=== PATIENT | male | born 1950 | race Caucasian/White ===

== ENCOUNTER 2022-09-13 11:35 | Inpatient (IN) | payer MEDICARE ==
[2022-09-13] MEDS ORDERED: Ondansetron PF 4 MG/2 ML Vial ONE (12:11)
[2022-09-13 12:12] LABS: #Basophils 0.1 10x3/uL (0.0-0.2); #Eosinphils 0.2 10x3/uL (0.0-0.5); #Neutrophils 7.5 10x3/uL (1.5-8.4); %Basophils 0.7 % (0.0-2.0); %Eosinophils 1.9 % (0.0-6.0); %Lymphocytes 18.8 % (18.0-47.0); %Neutrophils 69.1 % (40.0-75.0); Hematocrit 44.2 % (38.8-50.0); Hemoglobin 15.2 g/dL (13.5-17.5); Mean Corpuscular HGB CONC 34.4 g/dL (32.0-36.0); Mean Corpuscular Hemoglobin 32.5 pg (27.0-33.0); Mean Corpuscular Volume 94.4 fl (81.2-95.1); Mean Platelet Volume 9.9 fl (7.4-10.4); Platelet Count 204 10x3/uL (150-450); RBC Distribution Width 12.8 % (11.5-14.5); Red Blood Cell (RBC) Count 4.68 10x6/uL (4.32-5.72); White Blood Cell (WBC) Count 10.9 10x3/uL (3.5-10.5)
[2022-09-13 12:31] LABS: ALT (SGPT) 14 U/L (8-55); AST (SGOT) 8 U/L (5-34); Albumin 4.1 g/dL (3.4-4.8); Alkaline Phosphatase 77 U/L (40-110); Anion Gap 21 mmol/L (10-20); BUN (Urea Nitrogen) 58 mg/dL (8.4-25.7); Bilirubin, Total 0.4 mg/dL (0.2-1.2); CK (CPK) 78 U/L (30-200); Calc. Creatinine Clearance 0 mL/min (70-130); Calcium 8.8 mg/dL (7.8-10.44); Carbon Dioxide 14 mmol/L (23-31); Chloride 107 mmol/L (98-107); Estimated GFR 8; Globulin 3.4 g/dL (2.4-3.5); Glucose 120 mg/dL (80-115); Magnesium 2.5 mg/dL (1.6-2.6); Potassium 4.4 mmol/L (3.5-5.1); Protein, Total 7.5 g/dL (5.8-8.1); Sodium 138 mmol/L (136-145)
[2022-09-13 12:58] LABS: Phosphorus 6.3 mg/dL (2.3-4.7)
[2022-09-13] MEDS ORDERED: Sodium Bicarbonate 150 MEQ in Dextrose 5% in Water 1,000 ML IV SCH (13:30)
[2022-09-13] MEDS ORDERED: Ondansetron ODT 4 MG TAB PO PRN (13:59)
[2022-09-13] MEDS ORDERED: Ondansetron PF 4 MG/2 ML Vial IVP PRN (13:59)
[2022-09-13] MEDS ORDERED: Acetaminophen 325 MG TAB PO PRN (13:59)
[2022-09-13] MEDS ORDERED: Senokot S 8.6-50 MG TAB PO PRN (13:59)
[2022-09-13] MEDS ORDERED: Nitroglycerin 0.4 MG TAB (25 Tab Bottle) SL PRN (14:02)
[2022-09-13] MEDS ORDERED: Ipratropium/Albuterol 3 ML NEB NEB PRN (14:25)
[2022-09-13 16:04] LABS: Troponin I Less than 0.010 ng/mL (< 0.028)
[2022-09-13 18:13] LABS: Bilirubin Neg (Negative); Blood, Urine 150 (Negative); Clarity Clear (Clear); Glucose, Urine (Dipstick) Normal (Negative); Ketone, Urine Negative (Negative); Leukocyte Negative (Negative); Nitrite Negative (Negative); Protein, Urine (Dipstick) 30 mg/dl (Neg-Trace); Urobilinogen Normal mg/dL (Less than 2)
[2022-09-13 18:58] LABS: Bacteria/HPF 1+ HPF (None Seen); CAUTI Indications for Culture Acute Hematuria; Mucous/LPF 1+ LPF (<2+); Squamous Epithelial 0-3 HPF (0-3); WBC/HPF 0-3 HPF (0-3)
[2022-09-13 18:59] LABS: Urine Culture Reflex No No
[2022-09-13] MEDS: Sodium Bicarbonate 150 MEQ, Admixture Fee 1 EACH in Dextrose 5% in Water 1,000 ML IV SCH (21:00)
[2022-09-13] MEDS: Folic Acid 1 MG TAB PO SCH (21:00)
[2022-09-13] MEDS: Heparin 5,000 UNITS/ML VIAL SC SCH (21:00)
[2022-09-13] MEDS: Thiamine 100 MG TAB PO SCH (21:00)
[2022-09-13 21:15] VITALS: BMI 14.8
[2022-09-13] MEDS ORDERED: Thiamine HCl 200 MG/2 ML VIAL ONE (22:08)
[2022-09-13] MEDS ORDERED: Folic Acid 1 MG TAB ONE (22:08)
[2022-09-13] MEDS ORDERED: Heparin 5,000 UNITS/ML VIAL ONE (22:08)
[2022-09-13] MEDS ORDERED: Thiamine 100 MG TAB ONE (22:11)
[2022-09-14] MEDS ORDERED: Albumin 25% 100 ML ONE ×2 (01:31→08:24)
[2022-09-14] MEDS: Albumin 25% 25 GM/100 ML BOT IVPB SCH ×3 (01:40→08:20)
[2022-09-14 02:46] LABS: #Basophils 0.1 10x3/uL (0.0-0.2); #Eosinphils 0.2 10x3/uL (0.0-0.5); #Monocytes 0.6 10x3/uL (0.0-1.1); #Neutrophils 4.5 10x3/uL (1.5-8.4); %Basophils 0.8 % (0.0-2.0); %Lymphocytes 29.1 % (18.0-47.0); Hematocrit 33.3 % (38.8-50.0); Hemoglobin 11.5 g/dL (13.5-17.5); Mean Corpuscular HGB CONC 34.5 g/dL (32.0-36.0); Mean Corpuscular Hemoglobin 32.1 pg (27.0-33.0); Platelet Count 156 10x3/uL (150-450); RBC Distribution Width 12.7 % (11.5-14.5); Red Blood Cell (RBC) Count 3.58 10x6/uL (4.32-5.72); White Blood Cell (WBC) Count 7.4 10x3/uL (3.5-10.5)
[2022-09-14 03:48] LABS: Anion Gap 13 mmol/L (10-20); BUN (Urea Nitrogen) 47 mg/dL (8.4-25.7); Calc. Creatinine Clearance 14 mL/min (70-130); Calcium 7.3 mg/dL (7.8-10.44); Carbon Dioxide 25 mmol/L (23-31); Chloride 107 mmol/L (98-107); Estimated GFR 20; Glucose 79 mg/dL (80-115); Potassium 3.4 mmol/L (3.5-5.1); Sodium 142 mmol/L (136-145)
[2022-09-14] MEDS ORDERED: Lactated Ringer's 1,000 ML IV SCH (08:00)
[2022-09-14] MEDS ORDERED: Aspirin 81 mg Enteric Coated Tablet ONE (08:14)
[2022-09-14] MEDS ORDERED: Clopidogrel Bisulfate 75 MG TAB ONE (08:15)
[2022-09-14] MEDS ORDERED: Famotidine 20 MG TAB ONE (08:16)
[2022-09-14] MEDS ORDERED: Albumin 25% 25 GM/100 ML BOT IVPB SCH (08:30)
[2022-09-14] MEDS: Lactated Ringer's 1,000 ML IV SCH ×2 (08:30→17:57)
[2022-09-14] MEDS: Aspirin 81 mg Enteric Coated Tablet PO SCH (08:38)
[2022-09-14] MEDS: Famotidine 20 MG TAB PO SCH (08:39)
[2022-09-14] MEDS: Clopidogrel Bisulfate 75 MG TAB PO SCH (08:39)
[2022-09-14] MEDS ORDERED: Ondansetron PF 4 MG/2 ML Vial ONE (08:43)
[2022-09-14] MEDS ORDERED: GUAIFENESIN SF SOLN 200 MG/10 ML UDCUP PO PRN (09:37)
[2022-09-14] MEDS: Heparin 5,000 UNITS/ML VIAL SC SCH ×2 (11:45→22:02)
[2022-09-14] MEDS ORDERED: Heparin 5,000 UNITS/ML VIAL ONE (11:59)
[2022-09-14 17:13] LABS: Anion Gap 11 mmol/L (10-20); BUN (Urea Nitrogen) 32 mg/dL (8.4-25.7); Calc. Creatinine Clearance 23 mL/min (70-130); Calcium 7.3 mg/dL (7.8-10.44); Carbon Dioxide 28 mmol/L (23-31); Chloride 107 mmol/L (98-107); Estimated GFR 36; Glucose 96 mg/dL (80-115); Potassium 3.7 mmol/L (3.5-5.1); Sodium 142 mmol/L (136-145)
[2022-09-14] MEDS: Thiamine 100 MG TAB PO SCH (22:02)
[2022-09-14] MEDS: Folic Acid 1 MG TAB PO SCH (22:02)
[2022-09-15] MEDS ORDERED: Zolpidem Tartrate 5 MG TAB PO SCH (00:30)
[2022-09-15] MEDS: Sodium Bicarbonate 150 MEQ, Admixture Fee 1 EACH in Dextrose 5% in Water 1,000 ML IV SCH (01:18)
[2022-09-15 05:19] LABS: Anion Gap 12 mmol/L (10-20); BUN (Urea Nitrogen) 25 mg/dL (8.4-25.7); Calc. Creatinine Clearance 29 mL/min (70-130); Calcium 7.5 mg/dL (7.8-10.44); Carbon Dioxide 26 mmol/L (23-31); Chloride 109 mmol/L (98-107); Estimated GFR 49; Glucose 91 mg/dL (80-115); Sodium 143 mmol/L (136-145)
[2022-09-15] MEDS: Aspirin 81 mg Enteric Coated Tablet PO SCH (09:01)
[2022-09-15] MEDS: Famotidine 20 MG TAB PO SCH (09:01)
[2022-09-15] MEDS: Clopidogrel Bisulfate 75 MG TAB PO SCH (09:01)
[2022-09-15] MEDS: Heparin 5,000 UNITS/ML VIAL SC SCH (09:01)
[2022-09-15 12:27] VITALS: TEMP 97.8
[2022-09-15] MEDS: Lactated Ringer's 1,000 ML IV SCH (13:09)
[2022-09-15 13:20] VITALS: BP 115/64
== END 2022-09-15 12:45 | disposition home or self-care (01) | DRG 922 ==
LOC: CSHERS 11:35 → CSHERHOLD 14:03 → CSHTELE 09-14 14:30
PROVIDERS: ADMIT Internal Medicine; ATTEND Internal Medicine
DX: T67.3XXA Heat exhaustion, anhydrotic, initial encounter (principal); N17.0 Acute kidney failure with tubular necrosis; I42.9 Cardiomyopathy, unspecified; E87.20 Acidosis, unspecified; N18.9 Chronic kidney disease, unspecified; E86.0 Dehydration; I95.9 Hypotension, unspecified; I25.10 Atherosclerotic heart disease of native coronary artery without angina pectoris; I25.2 Old myocardial infarction; F17.210 Nicotine dependence, cigarettes, uncomplicated; E78.5 Hyperlipidemia, unspecified; I12.9 Hypertensive chronic kidney disease with stage 1 through stage 4 chronic kidney disease, or unspecified chronic kidney disease; E83.39 Other disorders of phosphorus metabolism; E87.6 Hypokalemia; Z79.82 Long term (current) use of aspirin; Z79.899 Other long term (current) drug therapy; Z95.810 Presence of automatic (implantable) cardiac defibrillator; Z71.6 Tobacco abuse counseling; X58.XXXA Exposure to other specified factors, initial encounter
CPT/HCPCS: 36415; 71045; 74176; 80048; 80053; 81001; 82274; 82550; 83690; 83735; 84100; 84484; 85025; 86850; 86900; 86901; 93005; 94760; 94762; J1644; J2405; J3411; J7070; J7120; P9047; Q0162